=== PATIENT | male | born 1980 | race Two or more races ===

== ENCOUNTER 2017-12-14 16:17 | Emergency (ER) | payer OTHER ==
--- NOTE | 2017-12-14 16:24 | PDOC ---
Rapid Medical Evaluation Time Seen by Provider: 12/14/17 16:22 Medical Evaluation: 12/14/17 16:23 I have performed a brief in-person evaluation of this patient. The patient presents with a chief complaint of: abdominal pain/bloating after eating w/ SOB, mostly to RUQ, denies f/c/n/v/d Pertinent physical exam findings: well appearing I have ordered the following: labs The patient will proceed to the ED for further evaluation. Discharge Disposition - Diagnosis Right upper quadrant pain - Referrals - Patient Instructions - Post Discharge Activity
[2017-12-14 16:27] VITALS: TEMP 98.2; BMI 28.3
[2017-12-14 17:57] LABS: BASO % 0.5 % (0-2.0); HEMOGLOBIN 15.3 GM/dL (11.7-16.9); LYMPH % 40.2 % (8-40); MCH 32.3 pg (25.7-33.7); MCHC 35.5 g/dl (32.0-35.9); MEAN CELL VOLUME 91.1 fl (80-96); MEAN PLT VOLUME 9.5 fl (7.5-11.1); MONO % 9.5 % (3.8-10.2); NEUT % 45.8 % (42.8-82.8); PLATELET COUNT 256 K/MM3 (134-434); RBC 4.72 M/mm3 (4.00-5.60); RDW 12.4 % (11.9-15.9); WHITE BLOOD COUNT 6.7 K/mm3 (4.0-10.0)
[2017-12-14 18:22] LABS: ALBUMIN 4.2 g/dl (3.4-5.0); ANION GAP 6 (8-16); BLOOD UREA NITROGEN 18 mg/dL (7-18); CALCIUM 9.2 mg/dL (8.5-10.1); CHLORIDE 104 mmol/L (98-107); CO2 28 mmol/L (21-32); GLUCOSE,RANDOM 83 mg/dL (74-106); POTASSIUM 3.7 mmol/L (3.5-5.1); SODIUM 138 mmol/L (136-145)
[2017-12-14 18:28] LABS: ALK PHOS 49 U/L (45-117); BILIRUBIN,TOTAL 0.4 mg/dL (0.2-1.0); CREATININE 0.9 mg/dL (0.7-1.3); SGOT/AST 21 U/L (15-37); SGPT/ALT 24 U/L (12-78); TOT PROT 7.9 g/dl (6.4-8.2)
[2017-12-14] MEDS ORDERED: MAG HYDROX/AL HYDROX/SIMETH 30 ML UNIT-DOSE CUP PO ONE (19:28)
--- NOTE | 2017-12-14 19:29 | PDOC ---
History of Present Illness - General Chief Complaint: Pain, Acute Stated Complaint: BLOATING Time Seen by Provider: 12/14/17 16:22 History Source: Patient - History of Present Illness Initial Comments: 12/14/17 20:05 37-year-old male complaining of epigastric bloating feeling after eating for the last 1.5 years. Patient reports that he was seen by a flight deck officer in [facility] and had endoscopy with unknown results. Patient denies being on any medications at that time. Patient reports that the gas and the bloating is sometimes worse where he has difficulty breathing. denies fever/ chills, NVD , urinary symptoms. Patient's asymptomatic at this time. Denies past medical history Denies surgical history 12/14/17 20:14 Past History - Past Medical History Allergies/Adverse Reactions: Allergies Allergy/AdvReac Type Severity Reaction Status Date / Time No Known Allergies Allergy Verified 12/14/17 16:27 Home Medications: Ambulatory Orders Mag Hydrox/Al Hydrox/Simeth [Mylanta Suspension -] 30 ml PO Q6H #1 bottle COPD: No - Immunization History Immunization Up to Date: Yes - Suicide/Smoking/Psychosocial Hx Smoking History: Never smoked Have you smoked in the past 12 months: No Information on smoking cessation initiated: No Hx Alcohol Use: No Drug/Substance Use Hx: No Substance Use Type: None Review of Systems - Review of Systems Able to Perform ROS?: Yes Is the patient limited German proficient: No Constitutional: No: Symptoms Reported, See HPI, Chills, Diaphoresis, Fever, Loss of Appetite, Malaise, Night Sweats, Weakness, Weight Stable, Unintentional Wgt. Loss, Unexplained wgt Loss, Other ABD/GI: Yes: Other (bloating and epigastric pain) *Physical Exam - Vital Signs Last Vital Signs Temp Pulse Resp BP Pulse Ox 98.2 F 78 16 116/72 100 12/14/17 16:24 12/14/17 16:24 12/14/17 16:24 12/14/17 16:24 12/14/17 16:24 - Physical Exam General Appearance: Yes: Appropriately Dressed Gastrointestinal/Abdominal: positive: Normal Bowel Sounds, Soft. negative: Tender Musculoskeletal: positive: Normal Inspection Extremity: positive: Normal Capillary Refill, Normal Inspection, Normal Range of Motion Integumentary: positive: Normal Color, Dry, Warm Neurologic: positive: Fully Oriented, Alert, Normal Mood/Affect ED Treatment Course - LABORATORY CBC & Chemistry Diagram: 12/14/17 17:40 12/14/17 17:40 - ADDITIONAL ORDERS Additional order review: Laboratory Results 12/14/17 12/14/17 17:40 17:40 Sodium 138 Potassium 3.7 Chloride 104 Carbon Dioxide 28 Anion Gap 6 L BUN 18 Creatinine 0.9 Creat Clearance w eGFR > 60 Random Glucose 83 Calcium 9.2 Total Bilirubin 0.4 AST 21 ALT 24 Alkaline Phosphatase 49 Total Protein 7.9 Albumin 4.2 Lipase 174 12/14/17 17:40 RBC 4.72 MCV 91.1 MCHC 35.5 RDW 12.4 MPV 9.5 Neutrophils % 45.8 Lymphocytes % 40.2 H Monocytes % 9.5 Eosinophils % 4.0 Basophils % 0.5 Progress Note - Progress Note Progress Note: A: abdominal bloating P: will give maalox labs wnl patient to be referred to GI *DC/Admit/Observation/Transfer Diagnosis at time of Disposition: Postprandial abdominal bloating - Discharge Dispostion Disposition: HOME - Prescriptions Prescriptions: Mag Hydrox/Al Hydrox/Simeth [Mylanta Suspension -] 30 ml PO Q6H #1 bottle - Referrals - Patient Instructions Printed Discharge Instructions: How to Avoid Gas Additional Instructions: start maalox as prescribed. avoid gas producing food. follow up with a GI as soon as possible. - Post Discharge Activity
[2017-12-14] MEDS ORDERED: MAG HYDROX/AL HYDROX/SIMETH 30 ML UNIT-DOSE CUP ONE (19:45)
--- NOTE | 2017-12-14 19:46 | PDOC ---
*Physical Exam - Vital Signs Last Vital Signs Temp Pulse Resp BP Pulse Ox 98.2 F 78 16 116/72 100 12/14/17 16:24 12/14/17 16:24 12/14/17 16:24 12/14/17 16:24 12/14/17 16:24 ED Treatment Course - LABORATORY CBC & Chemistry Diagram: 12/14/17 17:40 12/14/17 17:40 - ADDITIONAL ORDERS Additional order review: Laboratory Results 12/14/17 12/14/17 17:40 17:40 Sodium 138 Potassium 3.7 Chloride 104 Carbon Dioxide 28 Anion Gap 6 L BUN 18 Creatinine 0.9 Creat Clearance w eGFR > 60 Random Glucose 83 Calcium 9.2 Total Bilirubin 0.4 AST 21 ALT 24 Alkaline Phosphatase 49 Total Protein 7.9 Albumin 4.2 Lipase 174 12/14/17 17:40 RBC 4.72 MCV 91.1 MCHC 35.5 RDW 12.4 MPV 9.5 Neutrophils % 45.8 Lymphocytes % 40.2 H Monocytes % 9.5 Eosinophils % 4.0 Basophils % 0.5 Medical Decision Making - Medical Decision Making 12/14/17 19:46 agree with care from CAMILLE Parra *DC/Admit/Observation/Transfer Diagnosis at time of Disposition: Right upper quadrant pain - Referrals - Patient Instructions - Post Discharge Activity
[2017-12-14 19:50] VITALS: BP 118/70; PULSE 71
== END 2017-12-14 20:20 | disposition home or self-care (01) ==
LOC: JER 16:17
DX: R14.0 Abdominal distension (gaseous) (principal)
CPT/HCPCS: 36415; 80053; 83690; 85025; 99282-25